=== PATIENT | female | born 2000 | race Two or more races ===

== ENCOUNTER 2021-08-21 19:39 | Emergency (ER) | payer SELFPAY | END 2021-08-21 20:10 | disposition left against medical advice (07) | LOC: ER 19:39 → EDBD 19:39 → ER 20:10 | DX: R10.30 Lower abdominal pain, unspecified (principal); R11.10 Vomiting, unspecified; R61 Generalized hyperhidrosis; Z53.21 Procedure and treatment not carried out due to patient leaving prior to being seen by health care provider ==